=== PATIENT | female | born 1955 | race Two or more races ===

== ENCOUNTER → 2016-07-19 | Emergency (ER) | payer BC ==
[~2016-07-19] VITALS: Ht 160 cm; Wt 57.6 kg
[~2016-07-19] MED LIST: BACITRACIN ZINC OINT PACKET 1 EA PACKET TP ONE; CEPHALEXIN MONOHYDRATE 500 MG CAPSULE PO ONE; HYDROCODONE/APAP 5/325MG 1 EACH TABLET ONE; HYDROCODONE/APAP 5/325MG 1 EACH TABLET PO ONE; IBUPROFEN 600 MG TABLET PO ONE; TDAP [DIPH/PERTUSSIS/TET] 0.5 ML VIAL IM ONE
[2016-07-19 18:20] VITALS: BP 125/74
== END | disposition home or self-care (01) ==
LOC: ER 17:24
DX: S61.211A Laceration without foreign body of left index finger without damage to nail, initial encounter (principal); W29.0XXA Contact with powered kitchen appliance, initial encounter; Y93.89 Activity, other specified; Y92.89 Other specified places as the place of occurrence of the external cause; Y99.8 Other external cause status
CPT/HCPCS: 29130; 90471; 90715; 99284; A4606; A6402; Z7610